=== PATIENT | female | born 1945 | race Caucasian/White ===

== ENCOUNTER 2020-08-12 22:00 | Inpatient (IN) | payer MEDICARE, OTHER ==
[2020-08-12 22:30] LABS: HEMATOCRIT 40.3 % (32.4-45.2); HEMOGLOBIN 13.5 GM/dl (10.7-15.3); MCH 30.8 pg (25.7-33.7); MCHC 33.5 g/dl (32.0-36.0); MEAN PLT VOLUME 11.6 fl (7.5-11.1); PLATELET COUNT 239 10^3/uL (134-434); RBC 4.38 M/mm3 (3.60-5.2); RDW 12.5 % (11.6-15.6); WHITE BLOOD COUNT 14.5 K/mm3 (4.0-10.8)
[2020-08-12] MEDS ORDERED: METOPROLOL TARTRATE 5 MG/5 ML VIAL IVPUSH ONE (22:36)
[2020-08-12 22:45] LABS: ALBUMIN 3.5 g/dl (3.4-5.0); ALK PHOS 134 U/L (45-117); ANION GAP 20 MMOL/L (8-16); BILIRUBIN,TOTAL 1.4 mg/dl (0.2-1); CALCIUM 8.2 mg/dl (8.5-10); CHLORIDE 91 mmol/L (98-107); CO2 17 mmol/L (21-32); CREATININE 1.3 mg/dl (0.55-1.3); SGOT/AST 116 U/L (15-37); SGPT/ALT 75 U/L (13-61); SODIUM 128 mmol/L (136-145); TOT PROT 6.8 g/dl (6.4-8.2)
[2020-08-12 22:48] LABS: GLUCOSE,RANDOM 316 mg/dl (74-106)
[2020-08-12] MEDS ORDERED: SODIUM CHLORIDE 1,000 ML IV ONE ×3 (22:48→23:49)
[2020-08-12] MEDS ORDERED: INSULIN REGULAR HUMAN 100 UNITS/ML *VIAL IVPUSH ONE (22:48)
[2020-08-12] MEDS ORDERED: METOPROLOL TARTRATE 5 MG/5 ML VIAL ONE (22:50)
[2020-08-12] MEDS ORDERED: INSULIN REGULAR HUMAN 100 UNITS/ML *VIAL ONE (22:51)
[2020-08-12 22:56] LABS: PLATELET ESTIMATE ADEQUATE
[2020-08-12 23:32] LABS: LACTIC ACID 7.1 mmol/L (0.4-2.0)
[2020-08-12] MEDS ORDERED: cefTRIAXone SODIUM 1 GM VIAL ONE (23:42)
[2020-08-12 23:50] LABS: EPITHELIAL CELLS FEW /hpf
[2020-08-13 03:02] LABS: BLOOD UREA NITROGEN 18.6 mg/dL (7-18)
[2020-08-13 03:06] LABS: CREATININE 0.9 mg/dL (0.55-1.3)
[2020-08-13 03:14] LABS: CALCIUM 7.1 mg/dL (8.5-10.1)
[2020-08-13 04:34] VITALS: BMI 42.3
[2020-08-13] MEDS ORDERED: BENZOCAINE/MENTH/CETYLPYRD CL 1 EACH LOZENGE MM PRN (05:04)
[2020-08-13] MEDS ORDERED: POTASSIUM CHLORIDE TABS 20 MEQ TABLET.ER (FP) PO ONE ×2 (05:06→09:45)
[2020-08-13] MEDS: INSULIN SLIDING SCALE (NOVOLOG) 1 VIAL SQ SCH ×4 (06:45→21:24)
[2020-08-13] MEDS ORDERED: SODIUM CHLORIDE 1,000 ML IV SCH (07:45)
[2020-08-13 08:16] LABS: BASO % 0.3 % (0-2.0); EOS % 0.4 % (0-4.5); HEMATOCRIT 34.6 % (32.4-45.2); HEMOGLOBIN 11.4 GM/dl (10.7-15.3); LYMPH % 8.1 % (8-40); MCH 30.3 pg (25.7-33.7); MEAN CELL VOLUME 91.6 fl (80-96); MEAN PLT VOLUME 10.1 fl (7.5-11.1); MONO % 7.9 % (3.8-10.2); NEUT % 83.3 % (42.8-82.8); PLATELET COUNT 172 10^3/uL (134-434); RBC 3.78 M/mm3 (3.60-5.2); RDW 12.5 % (11.6-15.6); WHITE BLOOD COUNT 9.5 K/mm3 (4.0-10.8)
[2020-08-13 08:40] LABS: ALBUMIN 3.1 g/dl (3.4-5.0); BILIRUBIN,TOTAL 0.8 mg/dl (0.2-1); CALCIUM 7.7 mg/dl (8.5-10); MAGNESIUM 1.3 mg/dL (1.8-2.4); TOT PROT 6.2 g/dl (6.4-8.2)
[2020-08-13] MEDS: ASPIRIN 81 MG CHEWABLE TABLETS PO SCH (09:14)
[2020-08-13] MEDS: DIGOXIN 0.125 MG TABLET (FP) PO SCH (09:14)
[2020-08-13] MEDS: LOSARTAN 50MG/HCTZ 12.5MG 1 TAB PO SCH (09:14)
[2020-08-13] MEDS ORDERED: METOPROLOL TARTRATE 5 MG/5 ML VIAL ONE (09:16)
[2020-08-13] MEDS ORDERED: METOPROLOL TARTRATE 5 MG/5 ML VIAL IVPUSH ONE (09:30)
[2020-08-13] MEDS ORDERED: DEXTROSE 5%-WATER - 50 ML IVPB ONE (09:43)
[2020-08-13] MEDS ORDERED: cefTRIAXone SODIUM 1 GM VIAL ONE (09:43)
[2020-08-13] MEDS ORDERED: dilTIAZem HCL 50 MG/10 ML - 10 ML VIAL IVPUSH ONE (09:45)
[2020-08-13] MEDS: CEFTRIAXONE 1 GM in DEXTROSE 5%-WATER - 50 ML IVPB SCH (09:46)
[2020-08-13] MEDS: FAMOTIDINE 20 MG TABLET PO SCH (09:47)
[2020-08-13] MEDS ORDERED: ASPIRIN 81 MG CHEWABLE TABLETS PO SCH (10:00)
[2020-08-13] MEDS ORDERED: METOPROLOL TARTRATE 25 MG TABLET (FP) PO SCH (10:00)
[2020-08-13] MEDS ORDERED: MAGNESIUM SULF 50% (8.12 MEQ/2 ML-1 GM VIAL) IVPB ONE (11:38)
[2020-08-13] MEDS ORDERED: MAGNESIUM SULFATE IN WATER 2 GM/50 ML IVPB IVPB ONE (12:00)
[2020-08-13] MEDS ORDERED: metoPROLOL SUCCINATE 25 MG TAB.SR.24H (FP) PO ONE (13:45)
[2020-08-13] MEDS: ENOXAPARIN NA (PORCINE) 40 MG/0.4 ML DISP.SYRIN SQ SCH (14:30)
[2020-08-13] MEDS ORDERED: ATORVASTATIN CA 10 MG TABLET (FP) PO SCH (22:00)
[2020-08-14] MEDS: INSULIN SLIDING SCALE (NOVOLOG) 1 VIAL SQ SCH (06:13)
[2020-08-14 08:22] VITALS: TEMP 97.8
[2020-08-14] MEDS ORDERED: DEXTROSE 5%-WATER - 50 ML IVPB ONE (09:00)
[2020-08-14] MEDS ORDERED: cefTRIAXone SODIUM 1 GM VIAL ONE (09:00)
[2020-08-14] MEDS: ENOXAPARIN NA (PORCINE) 40 MG/0.4 ML DISP.SYRIN SQ SCH (09:54)
[2020-08-14] MEDS: CEFTRIAXONE 1 GM in DEXTROSE 5%-WATER - 50 ML IVPB SCH (09:54)
[2020-08-14] MEDS: DIGOXIN 0.125 MG TABLET (FP) PO SCH (09:55)
[2020-08-14] MEDS: LOSARTAN 50MG/HCTZ 12.5MG 1 TAB PO SCH (09:55)
[2020-08-14] MEDS: ASPIRIN 81 MG CHEWABLE TABLETS PO SCH (09:55)
[2020-08-14] MEDS: FAMOTIDINE 20 MG TABLET PO SCH (09:55)
[2020-08-14 09:56] VITALS: PULSE 74
[2020-08-14] MEDS ORDERED: INSULIN SLIDING SCALE (NOVOLOG) 1 VIAL SQ SCH (11:00)
[2020-08-14 14:30] VITALS: BP 130/62
[2020-08-15] MEDS ORDERED: INSULIN (LEVEMIR) 100 UNITS/ML UNITS SQ SCH (08:00)
== END 2020-08-14 15:21 | disposition home or self-care (01) | DRG 689 ==
LOC: FER 22:00 → FM/S 23:48 → UNDOADMIN 08-13 03:59 → FM/S 08-13 03:59 → J4W 08-13 18:15
PROVIDERS: ADMIT Internal Medicine; ATTEND Internal Medicine
DX: N39.0 Urinary tract infection, site not specified (principal); E10.10 Type 1 diabetes mellitus with ketoacidosis without coma; I47.1 Supraventricular tachycardia; E87.1 Hypo-osmolality and hyponatremia; I10 Essential (primary) hypertension; E78.5 Hyperlipidemia, unspecified; E83.42 Hypomagnesemia
CPT/HCPCS: 36415; 71045-TC-FY; 80048; 80053; 80162; 81003; 81015; 82010; 82550; 82553; 82962; 83036; 83605; 83735; 84443; 84484; 85025; 87040; 87086; 87186; 93005; 93010; 93306-TC; 97116-GP; 97161-GP; 99285-25; C9803; U0003; U0005